=== PATIENT | male | born 1990 ===

== ENCOUNTER 2018-01-29 16:14 | Emergency (ER) | payer OTHER, SELFPAY ==
[2018-01-29 16:20] VITALS: BP 161/99; PULSE 96; RESP 14; TEMP 36.2; O2SAT 96; BMI 35.5
[2018-01-29 16:22] VITALS: BP 161/99; PULSE 96; RESP 14; TEMP 36.2; O2SAT 96; BMI 35.5
--- NOTE | 2018-01-29 16:39 | ED_ITS ---
HPI - Extremity Injury (Upper) General Chief Complaint: Extremity Injury, Upper Stated Complaint: left thumb injury Time Seen by Provider: 01/29/18 16:29 Source: patient Mode of arrival: ambulatory Limitations: no limitations History of Present Illness HPI narrative: 27-year-old male here for evaluation of left thumb injury. Patient is right-hand dominant. He states that just prior to arrival he pushed down on his left hand and had pain afterwards. Has not tried anything for prior to arrival. Related Data Home Medications Medication Instructions Recorded Confirmed No Known Home Medications 01/12/18 01/29/18 Allergies Allergy/AdvReac Type Severity Reaction Status Date / Time No Known Drug Allergies Allergy Verified 01/29/18 16:22 Review of Systems Constitutional Denies fever(s) Musculoskeletal Comments: Left thumb pain Integumentary/Breasts Denies lesions and Denies rash Neurologic Comments: No numbness and tingling left upper extremity [facility] Medical History Healthy adult (Acute) Surgical History No pertinent past surgical history (Acute) Social History Smoking Status: Former smoker Exam Initial Vital Signs Initial Vital Signs: Vital Signs Temperature 97.1 F L 01/29/18 16:20 Pulse Rate 96 H 01/29/18 16:20 Respiratory Rate 14 01/29/18 16:20 Blood Pressure 161/99 H 01/29/18 16:20 Pulse Oximetry 96 01/29/18 16:20 Const General: cooperative, healthy appearing, comfortable, well developed, well groomed and No acute distress Resp Effort & Inspection: normal respiratory effort Skin Lesions: no lesions Rashes: no rashes Neuro Other: Sensation intact left upper extremity Extrem Other: Left wrist unremarkable. Left hand unremarkable. Left fingers unremarkable. Left thumb unremarkable. Full flexion and extension at the MCP and IP joint. No swelling. No instability. No pain with movement. No swelling. Psych Appearance: grossly normal and well kempt Course Vital Signs - 8 hr 01/29/18 16:20 01/29/18 16:22 Temperature 97.1 F L 97.1 F L Pulse Rate 96 H 96 H Respiratory Rate 14 14 Blood Pressure 161/99 H 161/99 H Pulse Oximetry 96 96 MDM - Extremity Injury (Upper) MDM Narrative Medical decision making narrative: Neurovascular intact, full range of motion, no indication for x-rays, Discharge Plan Departure Patient Disposition: Home Clinical Impression: Left thumb sprain Instructions: How To Perform RICE (Rest, Ice, Compress, Elevate) Activity Restrictions/Additional Instructions: Return to the emergency department for any new or worsening symptoms Prescriptions: No Action No Known Home Medications RF: 0
== END 2018-01-29 16:56 | disposition home or self-care (01) ==
PROVIDERS: Emergency Provider Emergency Medicine
DX: S63.602A Unspecified sprain of left thumb, initial encounter (principal); X50.9XXA Other and unspecified overexertion or strenuous movements or postures, initial encounter
CPT/HCPCS: 99282